=== PATIENT | female | born 1980 | race Caucasian/White ===

== ENCOUNTER → 2017-03-30 | Outpatient (CLI) | payer OTHER ==
[~2017-03-30] MED LIST: DHA PO; IBUP600 PO; IOHEXOL 350 MG/ML 10 ML VIAL (for RAD DIAG) IVCONTRAST ONE; OXYC-360 PO; PERI8.6T PO; PREN0.01 PO; ZOFR8TAB PO
[2017-03-30 13:26] LABS: HEMATOCRIT 37.1 % (35.0-46.0); MEAN CELL VOLUME 82.9 FL (80.0-100.0); MEAN CORPUSCULAR HEMOGLOBIN 28.3 PG (27.0-34.0); MEAN CORPUSCULAR HGB CONC 34.2 % (32.0-36.0); PLATELET COUNT 370 TH/MM3 (150-450); RED BLOOD COUNT 4.47 MIL/MM3 (4.00-5.30); RED CELL DISTRIBUTION WIDTH 13.2 % (11.6-17.2); REVIEW FLAG FINAL; WHITE BLOOD COUNT 8.7 TH/MM3 (4.0-11.0)
[2017-03-30 13:50] LABS: ALT (GPT) 31 U/L (10-53); ANION GAP 6 MEQ/L (5-15); AST (GOT) 20 U/L (15-37); BLOOD UREA NITROGEN 9 MG/DL (7-18); CHLORIDE 102 MEQ/L (98-107); GLUCOSE,FASTING 103 MG/DL (74-99); SODIUM (NA) 137 MEQ/L (136-145)
[2017-03-30 14:00] LABS: ALKALINE PHOSPHATASE 88 U/L (45-117); GLOMERULAR FILTRATION RATE 91 ML/MIN (>89); TOTAL BILIRUBIN ADULT 0.3 MG/DL (0.2-1.0)
--- NOTE | 2017-03-30 15:33 | RADRPT ---
EXAM DATE/TIME: 03/30/2017 14:58 [place] COMPARISON: No previous studies available for comparison. INDICATIONS : Right sided abdominal pain. IV CONTRAST: 86 cc Omnipaque 350 (iohexol) IV ORAL CONTRAST: Prescribed oral contrast ingested. RADIATION DOSE: 5.57 CTDIvol (mGy) MEDICAL HISTORY : None SURGICAL HISTORY : None. ENCOUNTER: Initial ACUITY: 1 day PAIN SCALE: 6/10 LOCATION: Right lower quadrant TECHNIQUE: Volumetric scanning of the abdomen and pelvis was performed. Using automated exposure control and ad justment of the mA and/or kV according to patient size, radiation dose was kept as low as reasonably achievable to obtain optimal diagnostic quality images. DICOM format image data is available electro nically for review and comparison. FINDINGS: LOWER LUNGS: The visualized lower lungs are clear. LIVER: Homogeneous density without lesion. There is no dilation of the biliary tree. No calcified gallston es. SPLEEN: Normal size without lesion. PANCREAS: Within normal limits. KIDNEYS: Normal in size and shape. There is no mass, stone or hydronephrosis. ADRENAL GLANDS: Within normal limits. VASCULAR: There is no aortic aneurysm. BOWEL/MESENTERY: No dilated loops of small or large bowel. The appendix is identified in the right lower quadrant, donato s a normal appearance, and measures 5 mm. ABDOMINAL WALL: Within normal limits. RETROPERITONEUM: There is no lymphadenopathy. BLADDER: No wall thickening or mass. REPRODUCTIVE: No evidence of free fluid. Bilateral low density areas in the adnexa probably represent ovarian cyst s. INGUINAL: There is no lymphadenopathy or hernia. MUSCULOSKELETAL: Within normal limits for patient age. CONCLUSION: Negative CT abdomen/pelvis with contrast. Bill Lynne MD on March 30, 2017 at 15:30 Board Certified Radiologist. This report was verified electronically.
== END ==
LOC: CLAB 13:02
PROVIDERS: ATTEND Family Medicine
DX: R10.84 Generalized abdominal pain (principal)
CPT/HCPCS: 36415; 74177; 80053; 83690; 84443; 85027; Q9967

== ENCOUNTER → 2017-04-19 | Outpatient (CLI) | payer OTHER ==
[~2017-04-19] MED LIST changes: -IOHEXOL 350 MG/ML 10 ML VIAL (for RAD DIAG) IVCONTRAST ONE
[2017-04-19 10:51] LABS: HDL CHOLESTEROL 79.3 MG/DL (40.0-60.0)
== END ==
LOC: CLAB 09:14
PROVIDERS: ATTEND Family Medicine
DX: Z00.00 Encounter for general adult medical examination without abnormal findings (principal)
CPT/HCPCS: 36415; 80061